=== PATIENT | female | born 1960 | race African-American/Black ===

== ENCOUNTER 2023-10-20 17:28 | Emergency (ER) | payer BC, OTHER ==
[2023-10-20 17:35] VITALS: BP 134/65; PULSE 74; RESP 17; TEMP 98.4
[2023-10-20] MEDS ORDERED: DIPHTH,PERTUSS(ACELL),TET 0.5 ML DISP.SYRIN IM ONE ×2 (17:42→17:47)
[2023-10-20] MEDS ORDERED: LIDOCAINE HCL 2% (50ML VIAL) SQ ONE (17:42)
[2023-10-20] MEDS ORDERED: LIDOCAINE HCL 2% (20ML MULTI-DOSE VIAL) ONE (17:47)
== END 2023-10-20 18:43 | disposition home or self-care (01) ==
LOC: FER 17:28
PROC: 0HQGXZZ Repair Left Hand Skin, External Approach (ICD-10-PCS; principal; 2023-10-20)
PROC: 3E0234Z Introduction of Serum, Toxoid and Vaccine into Muscle, Percutaneous Approach (ICD-10-PCS; 2023-10-20)
DX: S61.217A Laceration without foreign body of left little finger without damage to nail, initial encounter (principal); W26.0XXA Contact with knife, initial encounter; Y28.1XXA Contact with knife, undetermined intent, initial encounter; Y93.89 Activity, other specified; Y92.009 Unspecified place in unspecified non-institutional (private) residence as the place of occurrence of the external cause
CPT/HCPCS: 90715; 99283-25